=== PATIENT | female | born 1985 | race Caucasian/White ===

== ENCOUNTER 2016-04-29 15:54 | Emergency (ER) | payer OTHER ==
[~2016-04-29] VITALS: Ht 179.1 cm; Wt 171.8 kg
[~2016-04-29 15:54] MED LIST: DXM4T PO; OXYC-284 PO; OXYC1TAB24 PO
[2016-04-29 16:03] VITALS: BP 140/80; PULSE 96; RESP 15; O2SAT 98
--- NOTE | 2016-04-29 17:13 | ED.REPORT ---
HPI-Trauma Minor / Fall Date of Service Apr 29, 2016 ED Provider: Doc,Ed MD History of Present Illness: went to step off curb twisted left foot landing on left knee and right hip today around 220. primary care is paresh solis. have a couple days off. 09/28, percocet 1 to 2 daily for back pain on a pain contract with will happened at [facility]. Nursing Notes Stated Complaint: LT ANKLE PAIN Chief Complaint: Extremity Trauma Nursing Notes Reviewed: Yes Allergies: Coded Allergies: celecoxib (Verified Allergy, Unknown, 04/29/16) rofecoxib (Verified Allergy, Unknown, 04/29/16) tramadol (Verified Allergy, Unknown, 04/29/16) glipizide (Verified Adverse Reaction, Severe, stomach pain, hypoglycemia, 04/29/16) metformin (Verified Adverse Reaction, Intermediate, stomach cramps, ) Scheduled Dexamethasone (Dexamethasone) 4 Mg Tablet 8 MG PO DAILY Scheduled PRN Oxycodone HCl/Acetaminophen 5-325 (Percocet 5-325) 1 Each Tablet 1-2 EACH PO Q4 PRN PRN For Pain oxyCODONE-Acetaminophen 5-325 mg (oxyCODONE-Acetaminophen 5-325 mg) 1 Each Tablet 1-2 TAB PO Q6H PRN PRN For Pain General Time Seen by MD: 17:08 Chief Complaint Fall, Extremity pain Hx Obtained From: Patient Onset Occurred: 1 - 4 hours ago Symptom Duration: Since onset Past Medical History Past Medical History Herniated discs in 2010 PCOS anxiety morbid obesity 04/29/2016 Reports: Diabetes mellitus Past Surgical History Denies Smoking History Never Smoker Social History Alcohol Use: Denies alcohol use Occupation single lives by self workat [facility] 04/29/2016 Ambulatory Status Independent Review of Systems Basic Review of Systems Cardiovascular: No chest pain, No dyspnea on exertion, No orthopnea, No parox noct dyspnea, No palpitations Hematologic: No bleeding, No bruising Psychiatric: Normal thought content Physical Exam Initial Vital Signs Vital Signs (First) Date Time Temp Pulse Resp B/P Pulse Ox O2 Delivery O2 Flow Rate FiO2 04/29/16 16:03 36.6 96 15 140/80 98 Room Air Initial VS: Reviewed, Vital signs normal Head / Eyes: Atraumatic, Normocephalic, PERRL ENT: Mucous membranes moist, Conjunctiva normal, No scleral icterus Respiratory: Breath sounds normal, Clear to auscultation, No respiratory distress Cardiovascular: Regular rate & rhythm, Heart sounds normal, Intact distal pulses Abdomen / GI: Soft, Non-tender, No guarding, No rebound, No distention Back: No CVA tenderness Lymphatic: No lymphadenopathy Extremities: Vascular intact, Neuro intact, No swelling, No tenderness Skin: Warm, Dry, No cyanosis Neurologic: Alert, Oriented, Nonfocal Psychiatric: Mood/affect normal, Behavior normal, Normal thought content General/Constitutional: Awake, Alert, No acute distress, Well appearing, Well developed, Well hydrated, Well nourished, Cooperative, Not toxic appearing Appearance / Presentation: Positive: Obese, morbidly Neck: Atraumatic, Supple, No meningismus, Full range of motion ENT: Atraumatic, Airway patent, Mucous membranes moist, Pharynx NL Respiratory / Chest: Atraumatic, Breath sounds NL, Breath sounds = bilat, No respiratory distress Cardiovascular: Heart rate NL, Regular rhythm, Heart sounds NL, No gallop Abdomen: Atraumatic, Soft, Non-tender nickel size abrasion on left knee paitent indicates greatest pain is at lateral mallolus, no swelling noted, no ecchymosis, no skin disruption noted. Good range of motion, cap refill less than 3 sec. sensation intact distally Interpretation & Diagnostics Interpretation & Diagnostics: OCEDURE: X-RAY LEFT ANKLE, MINIMUM THREE VIEWS ([id number]) INDICATIONS: fall pain TECHNIQUE: 3 views of the ankle were acquired. COMPARISON: None. FINDINGS: Bones: No fractures or dislocations. Ankle mortise is normally aligned. No suspicious bony lesions. Prominent plantar calcaneal spurring. There is also tibiotalar degenerative spurring. Possible 2 mm loose body projecting in the region of the posterior/lateral tibiotalar joint space Soft tissues: No tibiotalar joint effusion. Achilles tendon appears normal. IMPRESSION: No fracture. Scattered degenerative spurring as above. Possible tibiotalar loose body X-Ray Interpretation Xray Interpretation: PROCEDURE: X-RAY LEFT FOOT COMPLETE, MINIMUM THREE VIEWS ([id number]) INDICATIONS: fall pain TECHNIQUE: 3 views of the foot were acquired. COMPARISON: None. FINDINGS: Bones: No fractures or dislocations. No suspicious bony lesions. Plantar calcaneal spurring. Accessory navicular Soft tissues: No tibiotalar joint effusion. Achilles tendon appears normal. IMPRESSION: No fracture. Plantar calcaneal spurring Dictated by: Vijay Bello M.D. on 04/29/2016 at 18:16 US Soft Tissue/Musculoskeletal PROCEDURE: X-RAY LEFT KNEE, THREE VIEWS ([id number]) INDICATIONS: fall pain TECHNIQUE: 3 views of the knee were acquired. COMPARISON: None. FINDINGS: Bones: No fractures or dislocations. No suspicious bony lesions. Soft tissues: No joint effusion. No suspicious soft tissue calcifications. IMPRESSION: Mild degenerative spurring. No fracture Re-Eval/Medical Decision Med Decision/Clinical Course 30 year old female presents for evualation after fall earlier today. Patient able to ambulate but with difficulty. X-rays are negative for fracture, Placed in a short walking boot and encouraged follow up with primary care. No evidence of compartment syndrome. Discharge & Departure Impression: Primary Impression: Fall Encounter type: initial encounter Qualified Code: W19.XXXA - Unspecified fall, initial encounter Additional Impressions: Left ankle sprain Encounter type: initial encounter Foot pain, left Sprain of left knee Encounter type: initial encounter Hip pain, right Disposition: Home Patient Instructions: Ankle Sprain (GEN), Knee Sprain (ED) Additional Instructions: I am so sorry you fell! Need to elevate the leg as much as possible. Use ice 15 minutes on and 15 minutes off for 3 to 4 days. I am glad you received a promotion to a [employer] job. Use the percocet that Dr. Solis is providing. Use ketorolac 10 mg up to 4 times a day to help with swelling and pain. Wear the splint as needed for comfort. The x-rays do not show any sign of bony damage. You may need physical therapy to recover from this. Dr. Solis can arrange this if needed. Referrals: Paresh Solis MD (PCP) EDSupervising Provider for APC: George Gonzalez DO copies to: Paresh Solis MD, Sue ARNP Apr 29, 2016 17:13
[2016-04-29] MEDS ORDERED: Ketorolac 30 mg/mL 2 mL Inj IM ONE (17:25)
--- NOTE | 2016-04-29 18:12 | DRSVH ---
PROCEDURE: X-RAY LEFT ANKLE, MINIMUM THREE VIEWS ([id number]) INDICATIONS: fall pain TECHNIQUE: 3 views of the ankle were acquired. COMPARISON: None. FINDINGS: Bones: No fractures or dislocations. Ankle mortise is normally aligned. No suspicious bony lesions . Prominent plantar calcaneal spurring. There is also tibiotalar degenerative spurring. Possible 2 m m loose body projecting in the region of the posterior/lateral tibiotalar joint space Soft tissues: No tibiotalar joint effusion. Achilles tendon appears normal. IMPRESSION: No fracture. Scattered degenerative spurring as above. Possible tibiotalar loose body Dictated by: Vijay Bello M.D. on 04/29/2016 at 18:10 Approved by: Vijay Bello M.D. on 04/29/2016 at 18:11
--- NOTE | 2016-04-29 18:19 | DRSVH ---
PROCEDURE: X-RAY LEFT FOOT COMPLETE, MINIMUM THREE VIEWS ([id number]) INDICATIONS: fall pain TECHNIQUE: 3 views of the foot were acquired. COMPARISON: None. FINDINGS: Bones: No fractures or dislocations. No suspicious bony lesions. Plantar calcaneal spurring. Acces ramona navicular Soft tissues: No tibiotalar joint effusion. Achilles tendon appears normal. IMPRESSION: No fracture. Plantar calcaneal spurring Dictated by: Vijay Bello M.D. on 04/29/2016 at 18:16 Approved by: Vijay Bello M.D. on 04/29/2016 at 18:18
--- NOTE | 2016-04-29 18:20 | DRSVH ---
PROCEDURE: X-RAY LEFT KNEE, THREE VIEWS ([id number]) INDICATIONS: fall pain TECHNIQUE: 3 views of the knee were acquired. COMPARISON: None. FINDINGS: Bones: No fractures or dislocations. No suspicious bony lesions. Soft tissues: No joint effusion. No suspicious soft tissue calcifications. IMPRESSION: Mild degenerative spurring. No fracture Dictated by: Vijay Bello M.D. on 04/29/2016 at 18:18 Approved by: Vijay Bello M.D. on 04/29/2016 at 18:19
[2016-04-29 18:44] VITALS: BP 131/68; PULSE 72; RESP 17; O2SAT 98
== END 2016-04-29 18:45 | disposition home or self-care (01) ==
LOC: SED 15:54
DX: S93.402A Sprain of unspecified ligament of left ankle, initial encounter (principal); S93.602A Unspecified sprain of left foot, initial encounter; M25.551 Pain in right hip; X50.0XXA Overexertion from strenuous movement or load, initial encounter; W10.1XXA Fall (on)(from) sidewalk curb, initial encounter; Y93.89 Activity, other specified; Y92.480 Sidewalk as the place of occurrence of the external cause; Y99.8 Other external cause status; E11.9 Type 2 diabetes mellitus without complications; Z88.5 Allergy status to narcotic agent; Z88.8 Allergy status to other drugs, medicaments and biological substances
CPT/HCPCS: 73562; 73610; 73630; 96372; 99284; J1885